=== PATIENT | female | born 1990 | race Caucasian/White ===

== ENCOUNTER 2018-03-25 11:58 | Inpatient (IN) | payer OTHER ==
[2018-03-25] VITALS (31 sets, daily range): BP systolic 99–133; BP diastolic 54–72; PULSE 67–108; TEMP 97.4–98.8
[~2018-03-25] VITALS: Ht 175.3 cm; Wt 102.3 kg
[2018-03-25] MEDS ORDERED: OMEGA-31 SGL PO (12:12)
[2018-03-25] MEDS ORDERED: PROTONIX20 MG PO (12:12)
[2018-03-25] MEDS ORDERED: PRENATAL VITAMI1 TA3 PO (12:12)
[2018-03-25 13:11] LABS: BASO % 0.2 % (0.0-2.0); GRAN # 8.3 (1.4-6.5); GRAN % 69.4 % (42.2-75.2); HEMATOCRIT 40.8 % (37.0-47.0); HEMOGLOBIN 13.8 g/dl (12.5-16.0); LYMPH # 2.9 (1.2-3.4); LYMPH % 24.4 % (20.0-51.0); MEAN CELL VOLUME 88 fl (80.0-100.0); MEAN CORPUSCULAR HEMOGLOBIN 30 pg (27.0-31.0); MEAN CORPUSCULAR HGB CONC 34 g/dl (33.0-37.0); MEAN PLATELET VOLUME 11.9 fl (7.4-10.4); MONO # 0.7 (0.1-0.6); MONO % 5.7 % (1.7-9.3); PLATELET COUNT 183 K/mm3 (130-400); RED BLOOD COUNT 4.63 M/mm3 (4.10-5.30); REDCELL DISTRIBUTION WIDTH-CV 12.5 % (11.5-14.5)
[2018-03-26 01:30] VITALS: BP 95/50; PULSE 56; TEMP 97.9
[2018-03-26 05:06] VITALS: BP 97/44; PULSE 60; TEMP 97.9
[2018-03-26 08:06] VITALS: BP 107/65; PULSE 76; TEMP 98.2
[2018-03-26 16:32] VITALS: BP 100/66; PULSE 70; TEMP 98.1
[2018-03-26 20:30] VITALS: BP 117/65; PULSE 68; TEMP 97.7
[2018-03-27 07:11] VITALS: BP 116/76; PULSE 70; TEMP 98.4
== END 2018-03-27 11:00 | disposition home or self-care (01) | DRG 775 ==
LOC: LDRO 11:58 → LDR 12:05 → OB 21:00
PROVIDERS: Obstetrics & Gynecology
PROC: 10E0XZZ Delivery of Products of Conception, External Approach (ICD-10-PCS; principal; 2018-03-25)
PROC: 0KQM0ZZ Repair Perineum Muscle, Open Approach (ICD-10-PCS; 2018-03-25)
DX: O70.1 Second degree perineal laceration during delivery (principal); Z37.0 Single live birth; Z3A.39 39 weeks gestation of pregnancy
CPT/HCPCS: J2590; J2795; J7120

== ENCOUNTER 2020-05-14 22:02 | Inpatient (IN) | payer OTHER ==
[~2020-05-14] VITALS: Ht 175.3 cm; Wt 96.4 kg
[~2020-05-14 22:02] MED LIST: OMEGA-31 SGL PO; PRENATAL VITAMI1 TA3 PO; PROTONIX20 MG PO
--- NOTE | 2020-05-14 22:15 | NUR ---
G2L1 at 38 weeks and 3 days arrives to unit with complaint of spontaneous rupture of membranes around 2100. Pt reports having large gush of clear fluid and continued to leak and fill peripad at home. Pt denies feeling contractions, reports good movement, denies any vaginal bleeding. Pt oriented to room, call light within reach, bed in low and locked position. Pt changed into clean gown. US and toco explained and applied. Amnitrace positive. SVE 3/75/-3, vertex position. Vital signs obtained. Admission assessment started.
[2020-05-14 22:30] VITALS: BP 99/57; PULSE 66; TEMP 98.6
[2020-05-14 23:00] VITALS: BP 116/69; PULSE 75
[2020-05-14 23:15] VITALS: BP 108/61; PULSE 69
[2020-05-14 23:30] VITALS: BP 109/63; PULSE 74
[2020-05-14 23:41] LABS: BASO % 0.1 % (0.0-2.0); EOS % 0.2 % (0-4.0); GRAN # 5.8 (1.4-6.5); GRAN % 63.5 % (42.2-75.2); HEMATOCRIT 36.6 % (37.0-47.0); HEMOGLOBIN 12.5 g/dl (12.5-16.0); LYMPH # 2.7 (1.2-3.4); LYMPH % 29.8 % (20.0-51.0); MEAN CELL VOLUME 88 fl (80.0-100.0); MEAN CORPUSCULAR HEMOGLOBIN 30 pg (27.0-31.0); MEAN CORPUSCULAR HGB CONC 34 g/dl (33.0-37.0); MEAN PLATELET VOLUME 12.9 fl (7.4-10.4); MONO # 0.6 (0.1-0.6); MONO % 6.1 % (1.7-9.3); PLATELET COUNT 124 K/mm3 (130-400); RED BLOOD COUNT 4.14 M/mm3 (4.10-5.30); REDCELL DISTRIBUTION WIDTH-CV 12.3 % (11.5-14.5)
[2020-05-14 23:45] VITALS: BP 107/60; PULSE 66
[2020-05-15] VITALS (37 sets, daily range): BP systolic 85–120; BP diastolic 51–83; PULSE 48–80; TEMP 97.8–98.6
--- NOTE | 2020-05-15 01:10 | NUR ---
SVE unchanged from previous exam. Category 1 FHR tracing. Pitocin initiated at 2 mu/min per protocol.
--- NOTE | 2020-05-15 02:18 | NUR ---
0205 - Pt wanting epidural at this time. Ankur Srinivasan CRNA called, will come to bedside. 0210 - SETH Ascencio at bedside. Epidural procedure, risks, and benefits reviewed, pt verbalized understanding. Pt positioned to sitting on edge of bed. 0218 - Single shot by SETH Ascencio. Pt denies adverse reactions. 0225 - Pt positioned to wedge left for comfort. Safety precautions reviewed. Bed in low and locked position. Call light within reach. See anesthesia record.
--- NOTE | 2020-05-15 02:45 | NUR ---
Pt called out stating that she was having a lot of red fluid leaking. Upon assessment, leticia red bleeding on peritowel, chux, and down to patients feet with large clot on chux pad. Pt denies any new pain and is asymptomatic. Pericare provided and bedding changed. 750 mL blood loss weighed by charge nurse Leigha Valladares. Physician notified.
--- NOTE | 2020-05-15 03:10 | NUR ---
Hernandez placed to dependent drainage at this time. Clear, yellow urine returned. Secured to leg with statlock. SVE /-3 with golf ball sized blood clot on glove after exam.
--- NOTE | 2020-05-15 05:50 | NUR ---
Peritowel changed at this time. Towel saturated with amniotic fluid and scant bloody show.
--- NOTE | 2020-05-15 07:35 | NUR ---
0620 REPORT TAKEN BY Haley ROSALES RN TO ASSUME CARE OF PATIENT. PATIENT DENIES NEEDS, NO PAIN OR PRESSURE. PATIENT REPOSITIONED AT THIS TIME TO RIGHT SIDE. BP 85/53. EPHEDRINE 10 MG IV GIVEN AT THIS TIME.
--- NOTE | 2020-05-15 07:40 | NUR ---
0627 MORNING ASSESSMENT COMPLETED ON PATIENT, FHT 125 WITH VARIABLES NOTED. SVE BY THIS NURSE. 10100/+4. BABY IS GOING TO DELIVER. EMERGENCY CALL LIGHT PULLED. NURSERY NURSE, AND CHARGE NURSE AT BEDSIDE. DR CALLED BY A ALVERTO RN TO COME NOW FOR DELIVERY. 0628 AT THIS TIME BY THIS NURSE. STRONG CRY NOTED. CORD CLAMPED AND CUT BY THIS NURSE AND BABY TO MOMS CHEST. Lio GREEN AT BEDSIDE. CORD BLOOD DRAWN AT THIS TIME AND DR REMAINS ON WAY. BLEEDING WNL. WAITING FOR DR. [address] YBARRA HERE TO DELIVER PLACENTA. 0650 PLACENTA DELIVERED AND SMALL REPAIR DONE BY DR TOLENTINO AT THIS TIME. PATIETN TOLERATED WELL. PITOCIN STARTED AT 333/ PROTOCOL. FUNDUS FIRM AND BLEEDING WNL.
[2020-05-16 01:03] VITALS: BP 115/68; PULSE 72; TEMP 98
[2020-05-16 03:47] VITALS: BP 122/74; PULSE 72; TEMP 98.7
[2020-05-16 07:14] VITALS: BP 108/69; PULSE 66; TEMP 97.8
--- NOTE | 2020-05-16 07:15 | NUR ---
Pt awakens easily and assessment completed. She reports minimal cramping and is doing well.
[2020-05-16] MEDS ORDERED: MOTRIN 800800 MG/TAB PO (09:00)
--- NOTE | 2020-05-16 09:10 | NUR ---
Initial visit; Parents thanked [employer] for offering congratulations and God's blessings for the of their son. V[facility]iner thanked family for choosing [facility].
--- NOTE | 2020-05-16 13:45 | NUR ---
Pt has done well and is having minimal cramping to abdomen. She was able to take a shower without difficulty, no clots noted to lochia and no pain with urination. Discharge instructions provided and pt with and baby were escorted to private vehicle at 1400.
== END 2020-05-16 14:00 | disposition home or self-care (01) | DRG 807 ==
LOC: LDRO 22:02 → LDR 22:15 → OB 22:15
PROVIDERS: ADMIT Obstetrics & Gynecology
PROC: 10E0XZZ Delivery of Products of Conception, External Approach (ICD-10-PCS; principal; 2020-05-15)
PROC: 0KQM0ZZ Repair Perineum Muscle, Open Approach (ICD-10-PCS; 2020-05-15)
DX: O70.1 Second degree perineal laceration during delivery (principal); Z37.0 Single live birth; Z3A.38 38 weeks gestation of pregnancy
CPT/HCPCS: J2590; J2795; J7120

== ENCOUNTER → 2020-08-21 | Outpatient (CLI) | payer OTHER ==
[~2020-08-21] MED LIST changes: +MOTRIN 800800 MG/TAB PO
== END ==
LOC: COL.RAD 12:47
DX: N28.1 Cyst of kidney, acquired (principal)